=== PATIENT | male | born 1990 | race Two or more races ===

== ENCOUNTER 2022-11-06 08:11 | Emergency (ER) | payer OTHER, SELFPAY ==
--- NOTE | ~2022-11-06 | XR_ITS ---
EXAMINATION: XR CHEST CLINICAL INFORMATION: Dyspnea COMPARISON: None available. TECHNIQUE: 2 views of the chest were obtained. FINDINGS: No significant abnormality is noted involving the heart, lungs, mediastinum, bony thorax or soft tissues. XR/XR chest 2V IMPRESSION: Unremarkable chest examination.
[2022-11-06 08:24] VITALS: BP 98/67; PULSE 59; RESP 20; TEMP 36.4; O2SAT 97; BMI 28.3
--- NOTE | 2022-11-06 08:52 | ED_ITS ---
HPI - Abdominal Pain General Chief Complaint: General Medical Stated Complaint: difficulty breathing Time Seen by Provider: 11/06/22 08:18 Source: patient Mode of arrival: ambulatory Limitations: no limitations History of Present Illness HPI narrative: 31 yo male no sig PMH notes he was diagnosed with GERD by PCP and is taking just pepcid 20mg daily for acid reflux burning chest when eating upper abdominal pain but now he feels he is short of breath and wakes up choking but no chest pain other than eating and no cough. He has no hx of VTE. He has not traveled or had a procedure no hx of asthma. He does not take NSAIDs, no GIB symptoms reported MD elicited complaint: abdominal pain Pertinent past history: none Onset (ago): week(s) Pain Consistency: intermittent Location: epigastric Severity: moderate Quality: dull and burning Radiation: chest Migration to: no migration Exacerbating factors: eating Relieving factors: nothing Associated symptoms: other (shortness of breath) Treatments prior to arrival: antacids Related Data Previous Rx's Medication Instructions Recorded omeprazole 20 mg capsule,delayed 20 mg PO BID #21 caps 11/06/22 release Allergies Allergy/AdvReac Type Severity Reaction Status Date / Time No Known Allergies Allergy Verified 11/06/22 08:43 Review of Systems Review of Systems Constitutional : No Weight loss, No Fever, No Chills Cardiovascular : pos Chest Pain, pos SOB, No Edema Respiratory : No Cough, No Sputum, No Wheezing Gastrointestinal : Positive Nausea, no Vomiting, no Diarrhea, positive abdominal Pain, No Hematochezia, No Melena Genitourinary : No Dysuria, No Urinary Frequency, No Hematuria, No Urgency Musculoskeletal : No joint pain, No Myalgias, No Joint Swelling Skin : No Skin Lesions, No rash Neuro : No Weakness, No Numbness, No Dizziness, No Headache Psych : No Anxiety/Panic, No Depression All other systems reviewed and are negative. [facility] Past Medical History Attestation statement: The following information was validated with the patient. Medical History GERD (gastroesophageal reflux disease) Social History Social History (Updated 11/06/22 @ 09:09 by Rebekah Poalnco DO) Patient Tobacco Use Status: Never used Tobacco Advance Directives: No Advance Directives Information Provided: No Physical Exam ED Vital Signs: Vital Signs - 24 hr 11/06/22 08:24 08/20/23 08:54 Temperature 97.6 F Pulse Rate 59 92 Respiratory Rate 20 22 H Blood Pressure 98/67 Pulse Oximetry 97 Oxygen Delivery Method Room Air BMI result Body Mass Index 28.3 Appearance: Alert. Oriented X3. No acute distress. Eyes: Pupils equal, round and reactive to light. ENT: Pharynx normal. Neck: Normal inspection. Neck supple. CVS: Normal heart rate and rhythm. Pulses normal. Respiratory: No respiratory distress. Breath sounds slightly diminished in both bases Abdomen: Soft and non-tender. Skin: Skin warm and dry. Normal skin color. Normal skin turgor. Extremities: No lower extremity edema. No calf ttp Neuro: Oriented X 3. No motor deficit. No sensory deficit. Course Course Course Narrative: feels better workup negative stable for DC Medical Decision Making Medical Decision Making [facility] Narrative: 31 yo male with recent GERD dx on pepcid 20mg once a day initially helped now no improvement - hurts to eat now some pain with breathing he has no fever or cough no chest pain other than eating - he has no ACS risk factors, he has mild dimi nished lungs at the bases - INH albuterol ordered. I have ordered GI cocktail as well. Basic labs, covid swab and CXR. Could be esophagitis would need PPI at this point likely BID x 1 week then daily for 2 weeks then follow up with PCP. He is PERC negative. Normal pulses and pain worse with eating x 1 week doubt dissection. Differential Diagnosis Differential Diagnoses: The differential diagnosis associated with the presentation includes gastritis, pancreatitis, viral syndrome, reactive airway disease, esophagitis Admission/Observation Consideration of admission/observation: Escalation of care including admission/observation considered feels better, tolerating PO negative workup stable for outpatient follow up with PCP Lab Data [facility] Lab Attestation statement: I reviewed the patient's lab results. 11/06/22 09:27 11/06/22 09:27 Labs: Lab Results 11/06/22 11/06/22 11/06/22 Range/Units 09:27 09:27 09:27 WBC 9.5 (4.8-10.8) X10*3/uL RBC 4.37 L (4.60-5.80) X10*6/uL Hgb 13.8 L (14.0-18.0) g/dl Hct 41.5 L (42.0-52.0) % MCV 95.0 (80.0-98.0) fL MCH 31.6 (27.0-33.0) pg MCHC 33.3 (31.0-36.0) g/dl RDW 11.7 (11.0-16.0) % Plt Count 205 (160-400) X10*3/uL MPV 10.4 (9.4-12.4) fL Immature Gran % (Auto) 0.3 (0.0-0.4) % Neut % (Auto) 73.4 H (45-73) % Lymph % (Auto) 19.5 L (20-40) % [place] % (Auto) 4.3 (2-11) % Eos % (Auto) 2.3 (0-4) % Baso % (Auto) 0.2 (0-2) % Lymph # (Auto) 1.9 (1.2-4.9) X10*3/uL [place] # (Auto) 0.4 (0.1-1.2) X10*3/uL Eos # (Auto) 0.2 (0.0-0.4) X10*3/uL Baso # (Auto) 0.0 (0.0-0.2) X10*3/uL Abs Immat Gran (auto) 0.03 (0.00-0.03) X10*3/uL Absolute Neuts (auto) 7.0 (2.0-8.3) x10*3/uL Absolute Nucleated RBC 0.000 (0.0-0.012) X10*3/uL Nucleated RBC % (auto) 0.0 (0.0-0.2) /100WBC Sodium 141 (135-145) mmol/L Potassium 3.4 (3.3-5.1) mmol/L Chloride 109 H (96-108) mmol/L Carbon Dioxide 25 (22-29) mmol/L Anion Gap 10 L (12-20) BUN 18 H (9-16) mg/dL Creatinine 1.01 (0.5-1.4) mg/dL Estim Creat Clear Calc 114.1 Estimated GFR > 60 Random Glucose 93 (60-115) mg/dL Calcium 9.3 (8.4-10.2) mg/dL Magnesium 1.8 (1.6-2.6) mg/dL Total Bilirubin 0.5 (0.0-1.0) mg/dL Direct Bilirubin 0.2 (0.0-0.5) mg/dL AST 18 (5-37) U/L ALT 12 (0-40) U/L Alkaline Phosphatase 61 (39-117) U/L Total Protein 6.9 (6.5-8.0) g/dL Albumin 4.1 (3.5-5.0) g/dL Lipase 14 (8-78) U/L COVID-19 (JAMA) Negative (Negative) COVID-19 Clin Com See Note Independent Interpretation I performed an independent interpretation of an: EKG and Plain X-Ray (normal ) Interpretation: Rate: 58 Rhythm: sinus christos 1st degree avb Cornell: normal Normal P waves. Normal GERONIMO. Normal QRS complex. ST T wave : normal no MIGUEL qTC: normal prior studies: no acute ischemia The study has been interpreted contemporaneously by me. . Radiology Impression Discussion of test interpretation with radiology: I have reviewed the radiologist's reading. Prescription Management I considered prescription management with: Other Medications Administered Discontinued Medications Generic Name Dose Route Start Last Admin Trade Name Freq PRN Reason Stop Dose Admin Al Hydroxide/Mg Hydroxide 15 ml 11/06/22 08:43 11/06/22 08:57 Magnesium Hydrox/Alum Hydrox 30 Ml Oral.Susp PO 11/06/22 08:44 15 ml ONCE ONE Administration Albuterol Sulfate 2 puff 11/06/22 08:43 11/06/22 08:53 Albuterol Sulfate 90 Mcg 8 Gm Inhaler INHALE 11/06/22 08:44 2 puff ONCE ONE Administration Lidocaine HCl 15 ml 11/06/22 08:43 11/06/22 08:57 Lidocaine Hcl Viscous 2 % 15 Ml Solution MUCOUS MEM 11/06/22 08:44 15 ml ONCE ONE Administration Discharge Plan Discharge Clinical Impression: Acute dyspnea GERD with esophagitis Qualifiers: Esophagitis bleeding: without hemorrhage Qualified Code(s): K21.00 - Gastro- esophageal reflux disease with esophagitis, without bleeding Patient Disposition: Home, Self-Care Instructions: Gastroesophageal Reflux Disease (ED), Dyspnea (ED) Additional Instructions: you can take inhaler for dyspnea 2 puffs every 4 hours as needed. stop taking the pepcid for right now - take the omeprazole for the next 2 weeks then switch back to pepcid. return for worsening pain, fevers, black or bloody stools - avoid motrin, aleve, ibuprofen - tylenol is is okay negative COVID test talk to your doctor in a week about your symptoms you were mildly dehydrated drink more fluids Prescriptions: New omeprazole 20 mg capsule,delayed release(DR/EC) 20 mg PO BID Qty: 21 0RF Rx Instructions: take twice a day for one week then once a day for 1 week
[2022-11-06] MEDS: Albuterol Sulfate 90 MCG 8 GM INHALER 2 PUFF INHALE (08:53)
[2022-11-06 08:54] VITALS: PULSE 92; RESP 22; O2SAT 97
[2022-11-06] MEDS: Magnesium Hydrox/Alum Hydrox 30 ML ORAL.SUSP 15 ML PO (08:57)
[2022-11-06] MEDS: Lidocaine HCl Viscous 2 % 15 ML SOLUTION MUCOUS MEM (08:57)
--- NOTE | 2022-11-06 09:19 | ECG_ITS ---
Test Reason : Chest Pain Blood Pressure : / mmHG Vent. Rate : 058 BPM Atrial Rate : 058 BPM P-R Int : 224 ms QRS Dur : 096 ms QT Int : 402 ms P-R-T Axes : 055 070 054 degrees QTc Int : 394 ms Sinus bradycardia with 1st degree A-V block Otherwise normal ECG No previous ECGs available Referred By: Rebekah Polanco Electronically Signed By:PEYMAN DUONG
[2022-11-06 09:31] LABS: MANUAL DIFF FLAG NO
[2022-11-06 09:33] LABS: Basophils Percent Auto 0.2 % (0-2); Eosinophils Absolute Auto 0.2 X10*3/uL (0.0-0.4); Eosinophils Percent Auto 2.3 % (0-4); Hematocrit 41.5 % (42.0-52.0); Hemoglobin 13.8 g/dl (14.0-18.0); Imm Gran Abs Auto 0.03 X10*3/uL (0.00-0.03); Imm Gran Pct Auto 0.3 % (0.0-0.4); Lymphocytes Absolute Auto 1.9 X10*3/uL (1.2-4.9); Lymphocytes Percent Auto 19.5 % (20-40); Mean Corpuscular HGB Conc 33.3 g/dl (31.0-36.0); Mean Corpuscular Hemoglobin 31.6 pg (27.0-33.0); Mean Platelet Volume 10.4 fL (9.4-12.4); Monocytes Absolute Auto 0.4 X10*3/uL (0.1-1.2); Monocytes Percent Auto 4.3 % (2-11); Neutrophils Percent Auto 73.4 % (45-73); Platelet Count 205 X10*3/uL (160-400); Red Blood Count 4.37 X10*6/uL (4.60-5.80); Red Cell Distribution Width 11.7 % (11.0-16.0); White Blood Count 9.5 X10*3/uL (4.8-10.8)
[2022-11-06 09:44] LABS: COVID-19 Test Negative (Negative); IDNOW Serial# 08D9AD1C
[2022-11-06 09:49] LABS: Alanine Aminotransferase 12 U/L (0-40); Albumin Level 4.1 g/dL (3.5-5.0); Alkaline Phosphatase 61 U/L (39-117); Anion Gap 10 (12-20); Aspartate Amino Transferase 18 U/L (5-37); Bilirubin Direct 0.2 mg/dL (0.0-0.5); Bilirubin Total 0.5 mg/dL (0.0-1.0); Blood Urea Nitrogen 18 mg/dL (9-16); Calcium 9.3 mg/dL (8.4-10.2); Carbon Dioxide 25 mmol/L (22-29); Chloride 109 mmol/L (96-108); Creatinine Clr Calc Pharmacy 114.1; Estimated Glomerular Filt Rate > 60; Glucose Random 93 mg/dL (60-115); Lipase 14 U/L (8-78); Magnesium 1.8 mg/dL (1.6-2.6); Potassium 3.4 mmol/L (3.3-5.1); Sodium 141 mmol/L (135-145); Total Protein 6.9 g/dL (6.5-8.0)
== END 2022-11-06 10:23 | disposition home or self-care (01) ==
PROVIDERS: Emergency Provider Emergency Medicine
DX: R06.02 Shortness of breath (principal); R00.1 Bradycardia, unspecified; R07.89 Other chest pain; Z20.822 Contact with and (suspected) exposure to COVID-19; Z20.828 Contact with and (suspected) exposure to other viral communicable diseases; Z79.899 Other long term (current) drug therapy
CPT/HCPCS: 71046; 80048; 80076; 83690; 83735; 85025; 87635; 93005; 94640; 99284